=== PATIENT | male | born 1995 | race Caucasian/White ===

== ENCOUNTER 2021-03-04 17:16 | Emergency (ER) | payer BC, OTHER ==
--- NOTE | 2021-03-04 17:21 | EDM.PDOC ---
ED HPI GENERAL MEDICAL PROBLEM - General Stated Complaint: BACK AND RT LEG PAIN Time Seen by Provider: 03/04/21 17:19 Source of Information: Reports: Patient History Limitations: Reports: No Limitations - History of Present Illness INITIAL COMMENTS - FREE TEXT/NARRATIVE: 18-year-old male past medical history sciatica presents for acute exacerbation of chronic low back pain. Patient first noted symptoms back in November of this year and has been seeing his primary care physician. He has never had advanced imaging of the back. He has been on indomethacin and Flexeril as needed and has been taking it quite frequently. He picked up a heavy cooler and exacerbated his pain and is now experiencing right-sided low back pain that radiates down his posterior leg. It is difficult to find a position of comfort. Denies dysuria, hematuria, urinary incontinence or retention. He is ambulatory but notes it is worse when he is walking and better with rest. back Pain Score (Numeric/FACES): 9 - Related Data Allergies Allergy/AdvReac Type Severity Reaction Status Date / Time No Known Allergies Allergy Verified 03/04/21 17:31 Home Meds: Home Meds Amphetamine/Dextroamphetamine [Adderall XR] 1 tab PO ASDIRECTED 03/04/21 [History] Cyclobenzaprine [Flexeril] 1 tab PO ASDIRECTED 03/04/21 [History] Cyclobenzaprine [Flexeril] 10 mg PO TID PRN #30 tab 03/04/21 [Rx] Diclofenac Submicronized [Diclofenac] 1 tab PO ASDIRECTED 03/04/21 [History] Ibuprofen [Motrin] 600 mg PO Q6H PRN #28 tab 03/04/21 [Rx] diazePAM [Valium] 5 mg PO BID PRN #6 tablet 03/04/21 [Rx] Past Medical History Respiratory History: Reports: Sleep Apnea Gastrointestinal History: Reports: GERD Psychiatric History: Reports: Anxiety, Depression Endocrine/Metabolic History: Reports: Obesity/BMI 30+ (lost 35 pounds recently) - Past Surgical History Musculoskeletal Surgical History: Reports: Shoulder Surgery ED ROS GENERAL - Review of Systems Review Of Systems: Comprehensive ROS is negative, except as noted in HPI. ED EXAM, GENERAL - Physical Exam Exam: See Below Exam Limited By: No Limitations General Appearance: Alert, WD/WN, No Apparent Distress Ears: Normal External Exam Nose: Normal Inspection Throat/Mouth: Normal Voice, No Airway Compromise Head: Atraumatic, Normocephalic Neck: Normal Inspection, Supple, Non-Tender Respiratory/Chest: No Respiratory Distress, Lungs Clear, Normal Breath Sounds, No Accessory Muscle Use Cardiovascular: Normal Peripheral Pulses, Regular Rate, Rhythm Back Exam: Normal Inspection. No: Vertebral Tenderness Extremities: Normal Inspection Neurological: Alert, Normal Cognition, Normal Gait Psychiatric: Normal Affect, Normal Mood Skin Exam: Warm, Dry, Intact, Normal Color Course - Vital Signs Last Recorded V/S: Last Vital Signs Temp 97.9 F 03/04/21 17:28 Pulse 87 03/04/21 17:28 Resp 18 03/04/21 17:28 BP 174/100 H 03/04/21 17:28 Pulse Ox 98 03/04/21 17:28 - Orders/Labs/Meds Meds: Medications Discontinued Medications Generic Name Dose Route Start Last Admin Trade Name Marquisq PRN Reason Stop Dose Admin Dexamethasone 10 mg 03/04/21 17:36 Dexamethasone 10 Mg/Ml Sdv IM 03/04/21 17:37 STAT STA Diazepam 2 mg 03/04/21 17:36 03/04/21 17:39 Diazepam 2 Mg Tab PO 03/04/21 17:37 Not Given ONETIME ONE Diazepam 4 mg 03/04/21 17:38 Diazepam 2 Mg Tab PO 03/04/21 17:39 ONETIME ONE Ketorolac Tromethamine 30 mg 03/04/21 17:37 Ketorolac 30 Mg/Ml Sdv IM 03/04/21 17:38 ONETIME ONE - Re-Assessments/Exams Free Text/Narrative Re-Assessment/Exam: 03/04/21 17:44 We will treat for likely acute exacerbation of sciatica with Decadron, Valium, Toradol. Will discharge with Motrin, Flexeril, short course of Valium. Explained to patient that he should follow-up with his primary care physician and consider MRI imaging of the back to the way of a better idea of exactly what is going on. Explained return precautions including intolerable pain, muscle paralysis, urinary incontinence or retention. Patient understands and is agreeable with plan. Departure - Departure Time of Disposition: 17:39 Disposition: Home, Self-Care 01 Condition: Good Clinical Impression: Low back pain Qualifiers: Chronicity: acute Back pain laterality: right Sciatica presence: with sciatica Sciatica laterality: sciatica of right side Qualified Code(s): M54.41 - Lumbago with sciatica, right side - Discharge Information Prescriptions: Cyclobenzaprine [Flexeril] 10 mg PO TID PRN #30 tab PRN Reason: Muscle Spasm - Painful Ibuprofen [Motrin] 600 mg PO Q6H PRN #28 tab PRN Reason: Pain diazePAM [Valium] 5 mg PO BID PRN #6 tablet PRN Reason: Muscle Spasm - Painful Instructions: Acute Back Pain, Adult Referrals: Elma Mahmood DO [Primary Care Provider] - Additional Instructions: Your symptoms are suggestive of sciatica. You should really follow-up with your PMD and consider getting an MRI of the back so that we have a better picture of exactly what is going on. I sent 3 medications your pharmacy. One is just a high-dose Motrin that you can take every 6 hours to help with pain and inflammation. The other 1 is called Flexeril or cyclobenzaprine which I know you are pretty familiar with. Another medication is called Valium which is a powerful muscle relaxant that can make you drowsy and dizzy. Do not drive or drink alcohol with this medication. Do not take the Flexeril and the Valium together. The Valium is for the next couple of days to help acutely and the Flexeril is more for longer term use. You can also take Tylenol 1000 mg in addition to the Motrin. These are safe to take together and although Tylenol is not a particularly strong pain medication it can help augment the Motrin to work better. The following information is given to patients seen in the emergency department who are being discharged to home. This information is to outline your options for follow-up care. We provide all patients seen in our emergency department with a follow-up referral. The need for follow-up, as well as the timing and circumstances, are variable depending upon the specifics of your emergency department visit. If you don't have a primary care physician on staff, we will provide you with a referral. We always advise you to contact your personal physician following an emergency department visit to inform them of the circumstance of the visit and for follow-up with them and/or the need for any referrals to a consulting specialist. The emergency department will also refer you to a specialist when appropriate. This referral assures that you have the opportunity for follow-up care with a specialist. All of these measure are taken in an effort to provide you with optimal care, which includes your follow-up. Under all circumstances we always encourage you to contact your private physician who remains a resource for coordinating your care. When calling for follow-up care, please make the office aware that this follow-up is from your recent emergency room visit. If for any reason you are refused follow-up, please contact the [facility] at and asked to speak to the emergency department charge nurse. Please follow up with your primary care physician. If you do not have a primary care physician, see below: [facility] [address] [place] [id number] [facility] [address] [place] [address] [facility] [address] [place] [id number] Sepsis Event Note (ED) - Focused Exam Vital Signs: Vital Signs Temp Pulse Resp BP Pulse Ox 03/04/21 17:28 97.9 F 87 18 174/100 H 98
[2021-03-04 17:31] VITALS: BP 174/100; PULSE 87
[2021-03-04] MEDS ORDERED: Diazepam 2 MG Tab PO ONE ×2 (17:36→17:38)
[2021-03-04] MEDS ORDERED: Dexamethasone 10 MG/ML SDV IM STA (17:36)
[2021-03-04] MEDS ORDERED: Ketorolac 30 MG/ML SDV IM ONE (17:37)
== END 2021-03-04 17:53 | disposition home or self-care (01) ==
LOC: MW.ED 17:16
DX: M54.41 Lumbago with sciatica, right side (principal); E66.9 Obesity, unspecified; Z68.33 Body mass index [BMI] 33.0-33.9, adult
CPT/HCPCS: 96372; 99283; A9270; J1100; J1885